=== PATIENT | male | born 1980 | race Two or more races ===

== ENCOUNTER 2018-03-11 09:14 | Emergency (ER) | payer OTHER ==
[2018-03-11 09:19] VITALS: BP 138/74
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
== END 2018-03-11 10:00 | disposition home or self-care (01) ==
LOC: ER 09:14
DX: S16.1XXA Strain of muscle, fascia and tendon at neck level, initial encounter (principal); S29.019A Strain of muscle and tendon of unspecified wall of thorax, initial encounter; M54.2 Cervicalgia; M54.6 Pain in thoracic spine; V63.5XXA Driver of heavy transport vehicle injured in collision with car, pick-up truck or van in traffic accident, initial encounter; F17.210 Nicotine dependence, cigarettes, uncomplicated
CPT/HCPCS: 99283